=== PATIENT | female | born 1950 | race Caucasian/White ===

== ENCOUNTER 2018-01-21 11:42 | Outpatient (CLI) | payer MEDICARE ==
[2018-01-21] VITALS (18 sets, daily range): BP systolic 84–118; BP diastolic 41–77
== END 2018-01-21 23:59 | disposition home or self-care (01) ==
LOC: CARD DIAG 11:42
PROVIDERS: ATTEND Internal Medicine Interventional Cardiology
DX: R55 Syncope and collapse (principal); Z87.891 Personal history of nicotine dependence
CPT/HCPCS: 93660

== ENCOUNTER 2024-10-10 10:18 | Outpatient (CLI) | payer MEDICARE, OTHER ==
[~2024-10-10 10:18] MED LIST: ASPI-1 PO; ATOR-2 PO; FURO20TA4 PO; HYDR-3964 PO; LOSA25TA41 PO; MAGN400C PO; METO-384 PO; POTA2TAB6 PO
--- NOTE | 2024-10-10 13:20 | RADIOLOGY REPORT ---
PROCEDURE: MR MRI LUMBAR SPINE INDICATION: LOW BACK PAIN Exam Date: 10/10/2024 11:04 AM COMPARISON: None TECHNIQUE: MRI lumbar spine without intravenous contrast. FINDINGS: Levoscoliosis. Grade 1 anterolisthesis of L5 on S1. There are degenerative endplate changes includin g modic endplate changes with anterior and lateral osteophytes throughout the lumbar spine. The visua lized distal spinal cord and conus medullaris are within normal limits. The conus medullaris appears to terminate within normal limits. The visualized retroperitoneal and paraspinal soft tissues are u nremarkable. The following axial levels are detailed below: T12-L1: There is a moderate circumferential disc bulge complicated by facet arthropathy associated w ith mild to moderate right neuroforaminal stenosis. No significant central canal stenosis. L1-L2: There is a moderate circumferential disc bulge complicated by facet arthropathy associated w ith moderate to severe right neuroforaminal stenosis. No significant central canal stenosis. L2-L3: There is a moderate circumferential disc bulge complicated by facet arthropathy associated w ith [id number] left and moderate to severe right neuroforaminal stenosis. No significant centra l canal stenosis. L3-L4: There is a moderate circumferential disc bulge complicated by facet arthropathy associated w ith mild to moderate right and moderate to severe left neuroforaminal stenosis. No significant centra l canal stenosis. L4-L5: There is a moderate circumferential disc bulge complicated by facet arthropathy associated w ith mild to moderate right and moderate to severe left neuroforaminal stenosis. No significant centra l canal stenosis. L5-S1: There is a moderate circumferential disc bulge complicated by facet arthropathy associated wi th mild to moderate bilateral neuroforaminal stenosis. No significant central canal stenosis. IMPRESSION: 1. 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 No significant central canal steno sis. Neural foraminal stenosis as above. HS:Y
== END 2024-10-10 23:59 | disposition home or self-care (01) ==
LOC: MRI02 10:18
PROVIDERS: ATTEND Family Medicine Sports Medicine
DX: M51.17 Intervertebral disc disorders with radiculopathy, lumbosacral region (principal); M54.50 Low back pain, unspecified; M77.9 Enthesopathy, unspecified; M47.816 Spondylosis without myelopathy or radiculopathy, lumbar region; M48.8X6 Other specified spondylopathies, lumbar region; M47.27 Other spondylosis with radiculopathy, lumbosacral region; M48.07 Spinal stenosis, lumbosacral region; M43.17 Spondylolisthesis, lumbosacral region
CPT/HCPCS: 72148